=== PATIENT | male | born 1985 | race Caucasian/White ===

== ENCOUNTER 2016-06-19 20:54 | Emergency (ER) | payer OTHER ==
[~2016-06-19] VITALS: Ht 185.4 cm; Wt 99.8 kg
[2016-06-19] MEDS ORDERED: predniSONE 20 MG TAB PO ONE (21:15)
[2016-06-19] MEDS ORDERED: KETOROLAC 60 MG/2 ML VIAL IM ONE (21:15)
[2016-06-19] MEDS ORDERED: PRD20T PO (21:19)
--- NOTE | 2016-06-19 21:20 | ED Neck-Back Pain/Injury ---
General Chief Complaint: Head/Cervical Problems Stated Complaint: NECL PAIN Nursing Triage Note: Pt c/o R sided neck pain since waking Thursday (06/14). Pt has seen physical therapist twice and had massage tonight. Pt reports pain is getting worse and is now shooting up into head. Nursing Sepsis Screen: No Definite Risk Source of Information: Patient Exam Limitations: No Limitations History of Present Illness Time Seen by Provider: 21:04 Initial Comments This 30-year-old gentleman presents to the emergency room with complaints of right neck pain radiating to the scalp that started on Thursday. He has had 2 physical therapy treatments in the past week that improved his pain somewhat but the pain rebounded. This evening he received a massage which initially helped but pain rebounded again. He has been taking ibuprofen 600 mg daily. He cannot identify any source of injury or strain. Pain is now radiating up to the mid parietal scalp and is sometimes shooting. He has had some sinus problems recently but denies any pain specifically in the mastoid area and denies fever. Allergies and Home Medications Allergies Coded Allergies: No Known Drug Allergies (Unverified , 02/08/15) Home Medications Prednisone 20 Mg Tab #3 20 MG PO DAILY Prescribed by: YENY VELA on 06/19/162118 Constitutional: no symptoms reported EENTM: see HPI Respiratory: no symptoms reported Cardiovascular: no symptoms reported Gastrointestinal: no symptoms reported Genitourinary: no symptoms reported Musculoskeletal: see HPI Skin: no symptoms reported Psychiatric/Neurological: See HPI Past Vwtyndq-Alrgkn-Wyogdl Hx Patient Social History Alcohol Use: Occasionally Uses Recreational Drug Use: No Smoking Status: Never a Smoker Recent Foreign Travel: No Contact w/Someone Who Travel: No Recent Infectious Disease Expo: No Recent Hopitalizations: No Immunizations Up To Date Tetanus Booster (TDap): Unknown PED Vaccines UTD: Yes Seasonal Allergies Seasonal Allergies: No Surgeries HX Surgeries: Yes Surgeries: Orthopedic Respiratory Hx Respiratory Disorders: No Cardiovascular Hx Cardiac Disorders: No Neurological Hx Neurological Disorders: No Reproductive System Hx Reproductive Disorders: No Genitourinary Hx Genitourinary Disorders: No Gastrointestinal Hx Gastrointestinal Disorders: No Musculoskeletal Hx Musculoskeletal Disorders: No Endocrine Hx Endocrine Disorders: No HEENT HX ENT Disorders: No Cancer Hx Cancer: No Psychosocial Hx Psychiatric Problems: No Integumentary HX Skin/Integumentary Disorder: No Blood Transfusions Hx Blood Disorders: No Adverse Reaction to a Blood Tr: No Physical Exam Vital Signs Vital Sign - Last 12Hours 06/19/16 20:57 Temp 97.5 Pulse 71 Resp 18 B/P 130/79 Pulse Ox 96 O2 Delivery Room Air Capillary Refill : Less Than 3 Seconds General Appearance: No Apparent Distress WD/WN HEENT: PERRL/EOMI Normal ENT Inspection Pharynx Normal Other (mild inflammation in the right ear canal that appears traumatic from Q-tip use) Neck: Normal Inspection Supple Limited Range of Motion (slightly reduced) Tender Lateral (right paraspinous muscles near the skull base, mild) Cardiovascular: Regular Rate, Rhythm No Edema No Murmur Respiratory: Lungs Clear Normal Breath Sounds No Accessory Muscle Use No Respiratory Distress Back: Normal Inspection No Vertebral Tenderness Extremity: Normal Inspection Neurologic/Psychiatric: Alert Oriented x3 No Motor/Sensory Deficits Normal 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 Norm as Tested Skin: Normal Color Warm/Dry Progress/Results/Core Measures Results/Orders My Orders Orders-YENY SALGADO MD Ketorolac Injection (Toradol Injection) (06/19/16 21:15) Prednisone Tablet (Deltasone Tablet) (06/19/16 21:15) Medications Given in ED Current Medications Medications Dose Ordered Sig/Cale Route Start Time Stop Time Status Last Admin Dose Admin Ketorolac Tromethamine 60 mg ONCE ONCE IM 06/19/16 21:15 06/19/16 21:16 DC 06/19/16 21:20 60 MG Prednisone 40 mg ONCE ONCE PO 06/19/16 21:15 06/19/16 21:16 DC 06/19/16 21:20 40 MG Vital Signs/I&O Vital Sign - Last 12Hours 06/19/16 20:57 Temp 97.5 Pulse 71 Resp 18 B/P 130/79 Pulse Ox 96 O2 Delivery Room Air Blood Pressure Mean: 96 Progress Note : Progress Note Patient was offered a Toradol injection which he accepts. He was off so offered a short course of prednisone which he also accepts. Etiology of his pain could be related to muscle strain/inflammation versus nerve irritation/ impingement. A trial of prednisone therapy will be pursued with an outpatient prescription as well. In the emergency room a dose of Toradol 60 mg IM as well as 40 mg of prednisone orally were administered. Departure Impression Impression: Primary Impression: Neck pain Disposition: HOME, SELF-CARE Condition: Improved Departure-Patient Inst. Decision time for Depature: 21:10 Referrals: NIKOLAS BYRNES MD (PCP/Family) Primary Care Physician Patient Instructions: NO INSTRUCTIONS GIVEN Add. Discharge Instructions: Your pain may be related to muscle inflammation/spasm and/or nerve irritation. You may increase your ibuprofen use to 600 mg every 6 hours as needed for pain. You may add Tylenol (acetaminophen) up to 1000 mg every 6 hours as needed for additional pain relief. Gentle heat may also help. Stay well-hydrated, especially after massage. Follow-up with your primary care provider if you do not have significant improvement after steroid (prednisone) therapy. Return to the ER symptoms worsen. All discharge instructions reviewed with patient and/or family. Voiced understanding. Scripts Prednisone 20 Mg Tab20 Mg PO DAILY #3 TAB Prov:YENY SALGADO MD 06/19/16 YENY SALGADO MD Jun 19, 2016 21:20
[2016-06-19 21:41] VITALS: BP 130/79
== END 2016-06-19 21:41 | disposition home or self-care (01) ==
LOC: EDUNIT# 20:54 → ER 20:56
DX: M54.2 Cervicalgia (principal)
CPT/HCPCS: 96372; 99282

== ENCOUNTER → 2020-11-15 | Outpatient (CLI) | payer BC ==
[~2020-11-15] MED LIST: PRD20T PO
--- NOTE | 2020-11-15 14:44 | Diagnostic Imaging Report ---
PROCEDURE: MRI lumbar spine. TECHNIQUE: Multiplanar, multisequence MRI of the lumbar spine was performed without contrast. INDICATION: Low back pain and swelling in the right side. No prior studies are available for comparison. Curvature and alignment of the lumbar spine is normal. Vertebral body heights are well-maintained. The marrow signal intensity is unremarkable. There is normal height and signal intensity to the lumbar intervertebral discs. No focal disc protrusion, central canal or neural foraminal stenosis is identified. Paraspinous tissues are unremarkable. At the area of swelling no underlying abnormality is seen. IMPRESSION: Unremarkable MRI of the lumbar spine without contrast. Dictated by: Dictated on workstation # [id number]
== END ==
LOC: RAD 12:45
PROVIDERS: ATTEND Family Medicine
DX: M54.5 Low back pain (principal); M79.89 Other specified soft tissue disorders
CPT/HCPCS: 72148